=== PATIENT | female | born 1955 | race Caucasian/White ===

== ENCOUNTER 2017-01-19 14:43 | Emergency (ER) | payer MEDICARE, MEDICAID ==
[2017-01-19 15:10] VITALS: BP 109/84
--- NOTE | 2017-01-19 15:20 | EDM.PDOC ---
ED HPI GENERAL MEDICAL PROBLEM - General Chief Complaint: General Stated Complaint: COUGH,ABD PAIN Time Seen by Provider: 01/19/17 15:15 Source of Information: Reports: Patient, Other (staff) History Limitations: Reports: Altered Mental Status, Language Barrier - History of Present Illness INITIAL COMMENTS - FREE TEXT/NARRATIVE: Pt is nonverbal. Now staff brings client in for complaint of cough x 1 week. Was reporting to new staff upper chest pain. No fevers. Appetite good. Onset: Gradual Onset Date: 01/13/17 Duration: Intermittent Location: Reports: Chest Quality: Reports: Other (unable to describe) Severity: Mild Improves with: Reports: None Worsens with: Reports: None Associated Symptoms: Reports: Cough - Related Data Allergies Allergy/AdvReac Type Severity Reaction Status Date / Time No Known Allergies Allergy Verified 01/19/17 14:59 Home Meds: Home Meds Diazepam [Valium] 5 mg PO ASDIRECTED PRN 01/19/17 [History] Past Medical History Gastrointestinal History: Reports: Chronic Constipation Genitourinary History: Reports: UTI, Recurrent Musculoskeletal History: Reports: Osteoarthritis Psychiatric History: Reports: Anxiety, Other (See Below) Other Psychiatric History: intellectual disability Dermatologic History: Reports: Other (See Below) Other Dermatologic History: corns and plantar warts - Past Surgical History Female Surgical History: Reports: Hysterectomy, Oophorectomy Social & Family History - Tobacco Use Smoking Status *Q: Never Smoker - Caffeine Use Caffeine Use: Reports: Coffee - Recreational Drug Use Recreational Drug Use: No ED ROS GENERAL - Review of Systems Review Of Systems: See Below Constitutional: Reports: No Symptoms HEENT: Reports: No Symptoms Respiratory: Reports: Cough Cardiovascular: Reports: No Symptoms GI/Abdominal: Reports: No Symptoms ED EXAM, GENERAL - Physical Exam Exam: See Below Exam Limited By: No Limitations General Appearance: Alert, WD/WN, No Apparent Distress Ears: Normal External Exam, Normal Canal, Hearing Grossly Normal, Normal TMs Nose: Normal Inspection, Normal Mucosa, No Blood Throat/Mouth: Normal Inspection, Normal Lips, Normal Teeth, Normal Gums, Normal Oropharynx, Normal Voice, No Airway Compromise Head: Atraumatic, Normocephalic Neck: Normal Inspection, Supple, Non-Tender, Full Range of Motion Respiratory/Chest: Rhonchi (right middle lobe) Cardiovascular: Normal Peripheral Pulses, Regular Rate, Rhythm, No Edema, No Gallop, No JVD, No Murmur, No Rub GI/Abdominal: Normal Bowel Sounds, Soft, Non-Tender, No Organomegaly, No Distention, No Abnormal Bruit, No Mass Course - Vital Signs Last Recorded V/S: Last Vital Signs Temp 98.1 F 01/19/17 15:10 Pulse 90 01/19/17 15:10 Resp 18 01/19/17 15:10 BP 109/84 01/19/17 15:10 Pulse Ox 95 01/19/17 15:10 Departure - Departure Time of Disposition: 15:20 Disposition: Home, Self-Care 01 Condition: Good Clinical Impression: Bronchitis - Discharge Information Referrals: Bossman Quan MD [Primary Care Provider] - Additional Instructions: Rx for Zpak as directed x 5 days. May use Delsym cough syrup 1 tsp every 8 hour as needed. Increase fluids, rest. Encouraged good handwashing. - Problem List & Annotations (1) Bronchitis SNOMED Code(s): 51627514 Code(s): J40 - BRONCHITIS, NOT SPECIFIED ACUTE OR CHRONIC Status: Acute Priority: Low Current Visit: Yes
== END 2017-01-19 15:34 | disposition home or self-care (01) ==
LOC: JP.ED 14:43
DX: J40 Bronchitis, not specified as acute or chronic (principal); M19.90 Unspecified osteoarthritis, unspecified site; Z87.440 Personal history of urinary (tract) infections; Z90.710 Acquired absence of both cervix and uterus
CPT/HCPCS: 99283